=== PATIENT | female | born 1940 | race African-American/Black ===

== ENCOUNTER 2020-04-15 19:08 | Emergency (ER) | payer OTHER ==
[~2020-04-15] VITALS: Ht 167.6 cm; Wt 77.1 kg
[2020-04-15 19:44] LABS: HEMATOCRIT 41.3 % (37.0-47.0); HEMOGLOBIN 12.5 gm/dL (12.0-15.0); MCH 27.8 pg (26.0-34.0); MCHC 30.3 g/dL (28.0-37.0); MCV 91.7 fL (80.0-100.0); PLATELET COUNT 407 thou/uL (150-400)
[2020-04-15 19:49] LABS: WBC 75.5 thou/uL (4.0-11.0)
[2020-04-15 19:54] LABS: ANION GAP 6 mmol/L (7-16); BUN 13 mg/dL (7-18); CALCIUM 8.8 mg/dL (8.5-10.1); CHLORIDE 99 mmol/L (98-107); CO2 31 mmol/L (21-32); CREATININE 0.9 mg/dL (0.6-1.0); GLUCOSE 209 mg/dL (74-106); POTASSIUM 4.5 mmol/L (3.5-5.1); SODIUM 136 mmol/L (136-145)
[2020-04-15 20:03] LABS: ABSOLUTE NEUTROPHILS 15.1 thou/uL (1.4-8.2); TROPONIN-I <0.06 ng/mL (<0.06)
[2020-04-15 20:04] LABS: ANISOCYTOSIS 1+
[2020-04-15] MEDS ORDERED: PREDNISONE 20 M20 MG PO (22:04)
[2020-04-15 22:49] VITALS: BP 133/73
--- NOTE | 2020-04-16 11:48 | EKG ---
[facility] [place] [address] ELECTROCARDIOGRAM REPORT Name: VEGA SAENZ Room #: [facility]#: [id number] Admission: 04/15/20 Attend Phys: Discharge: 04/15/20 Date of : 42 Report #: [id number] THIS REPORT FOR: cc: [facility] - Clinic physician unknown [facility] - Clinic physician unknown Jordan Noland MD [facility] ~ THIS REPORT FOR: //name// [facility] ED Test Date: 2020-04-15 Test Time: 19:47:33 Pat Name: VEGA SAENZ Department: Room: Gender: F Cancer Genetics Assistant: SANJU : 1940 Requested By: Rodrigo Chavez Order Number: [id number] MD: Jordan Noland Measurements Intervals [place] Rate: 106 P: 84 OR: 199 QRS: -19 QRSD: 72 T: 60 QT: 311 QTc: 413 Interpretive Statements Sinus tachycardia Borderline left axis deviation Borderline low voltage, extremity leads Abnormal R-wave progression, early transition No previous ECG available for comparison Electronically Signed On 04-16-2020 11:48:45 CDT by Jordan Noland [email or web address] <ELECTRONICALLY SIGNED> By: Jordan Noland MD, [facility] 04/16/20 [id number] 46 Jordan Noland MD, [facility] /EPI
== END 2020-04-15 23:02 | disposition home or self-care (01) ==
LOC: ER 19:08
PROVIDERS: Emergency Medicine
DX: J44.1 Chronic obstructive pulmonary disease with (acute) exacerbation (principal); Z91.041 Radiographic dye allergy status